=== PATIENT | female | born 1995 | race Two or more races ===

== ENCOUNTER 2020-02-28 11:00 | Day surgery (SDC) | payer OTHER | END 2020-02-28 16:15 | disposition home or self-care (01) | LOC: CIR.AMB 11:00 | PROVIDERS: ATTEND Orthopaedic Surgery Hand Surgery | DX: M67.432 Ganglion, left wrist (principal); Z20.828 Contact with and (suspected) exposure to other viral communicable diseases ==

== ENCOUNTER 2022-05-10 02:19 | Emergency (ER) | payer OTHER ==
[~2022-05-10] VITALS: Ht 162.6 cm; Wt 61.2 kg
== END 2022-05-10 12:37 | disposition home or self-care (01) ==
LOC: ER 02:19
DX: I88.0 Nonspecific mesenteric lymphadenitis (principal); Z91.040 Latex allergy status

== ENCOUNTER 2022-05-25 05:51 | Emergency (ER) | payer OTHER ==
[~2022-05-25] VITALS: Ht 160 cm; Wt 59.0 kg
== END 2022-05-25 08:14 | disposition home or self-care (01) ==
LOC: ER 05:51
DX: H66.001 Acute suppurative otitis media without spontaneous rupture of ear drum, right ear (principal); Z91.040 Latex allergy status

== ENCOUNTER 2023-06-17 07:01 | Emergency (ER) | payer OTHER ==
[~2023-06-17] VITALS: Ht 162.6 cm; Wt 59.0 kg
== END 2023-06-17 11:02 | disposition home or self-care (01) ==
LOC: ER 07:01
DX: S00.93XA Contusion of unspecified part of head, initial encounter (principal); W18.39XA Other fall on same level, initial encounter; Y93.89 Activity, other specified; Y92.013 Bedroom of single-family (private) house as the place of occurrence of the external cause; Y99.9 Unspecified external cause status; Z88.8 Allergy status to other drugs, medicaments and biological substances; Z91.040 Latex allergy status